=== PATIENT | female | born 2000 | race African-American/Black ===

== ENCOUNTER 2024-07-22 12:55 | Emergency (ER) | payer MEDICAID ==
[~2024-07-22] VITALS: Ht 167.6 cm; Wt 55.0 kg
[2024-07-22 12:58] VITALS: BP 100/58; PULSE 67; RESP 16; TEMP 98.2; O2SAT 100
[2024-07-22 13:30] LABS: BASOPHILS % 0.2 % (0.0-2.0); HEMATOCRIT. 38.1 % (36.0-48.0); HEMOGLOBIN. 12.2 g/dL (12.0-16.0); LYMPHOCYTES % 13.3 % (20.0-50.0); MEAN CORPUSCULAR HEMOGLOBIN 28.6 pg (28.0-32.0); MEAN CORPUSCULAR VOLUME 89.2 fL (81.0-99.0); MEAN PLATELET VOLUME 10.3 fl (7.4-10.4); MONOCYTES % 6.4 % (2.0-8.0); NEUTROPHILS % 80.1 % (40.0-76.0); PLATELET 209 x1000/uL (130-400); RED BLOOD CELL COUNT 4.27 mill/uL (4.2-5.4); RED CELL DISTRIBUTION WIDTH 14.4 % (11.6-14.6)
[2024-07-22 13:31] LABS: HCG SCREEN NEGATIVE
[2024-07-22 13:34] LABS: CHLORIDE 105 mEq/L (98-107); POTASSIUM 4.1 mEq/L (3.5-5.1); SODIUM 142 mEq/L (136-145)
[2024-07-22 13:35] LABS: CARBON DIOXIDE 26 mEq/L (21-32)
[2024-07-22] MEDS: ONDANSETRON 4MG ODT PO STA (13:37)
[2024-07-22] MEDS: KETOROLAC 30MG/ML VIAL IM STA (13:37)
[2024-07-22 13:40] LABS: CREATININE 0.8 mg/dL (0.6-1.0); GLUCOSE 93 mg/dL (70-105); UREA NITROGEN BLOOD 20 mg/dL (9-23)
[2024-07-22 13:41] LABS: INR 1.1; PROTHROMBIN TIME 11.7 sec (9.6-11.0)
[2024-07-22 13:42] LABS: ALANINE AMINOTRANSFERASE 12 IU/L (10-49); ALBUMIN 5.1 g/dL (3.2-4.8); ASPARTATE AMINOTRANSFERASE 25 IU/L (<34); BILIRUBIN DIRECT 0.2 mg/dL (<=3.0); BILIRUBIN TOTAL 0.6 mg/dL (0.1-1.0); PROTEIN TOTAL 8.3 g/dL (6.0-8.3)
[2024-07-23] MEDS ORDERED: IOHEXOL-300 100 ML BOTTLE ONE (00:08)
== END 2024-07-22 18:27 | disposition home or self-care (01) ==
LOC: ER 13:49
DX: R10.31 Right lower quadrant pain (principal); T50.905A Adverse effect of unspecified drugs, medicaments and biological substances, initial encounter; Y92.89 Other specified places as the place of occurrence of the external cause
CPT/HCPCS: 80076; 80048; 84703; 83690; 85025; 85610; 36415; 74177; 96372; 99285; Q9967; Q0162; J1885; Z7610